=== PATIENT | female | born 1935 | race Caucasian/White ===

== ENCOUNTER 2019-11-21 06:22 | Observation (INO) ==
--- NOTE | 2019-11-19 16:39 | Anesthesiology Consultation ---
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 Denies recent travel. Wears mask, uses good hand hygiene and socially distances. No known Covid positive contacts or Covid related symptoms. Scheduled for preop Covid testing 11/19/19. Seen by cardiology 11/01/2019 = patient seen for cardio follow-up. Patient having increased fatigue and shortness of breath despite medical therapy. It was decided patient needs to be scheduled for Bi-V pacemaker upgrade. Seen by thoracic medicine 10/17/2019 = patient presents for 6-month follow-up with chest CT prior to appointment. Recent CT scan of chest reviewed. Sinus issues x2 months likely allergy related. Patient was covered with antibiotic since increased nodular density in RUL may be infectious. Patient to call in 10 days if cough production does not resolve. Mild persistent asthmapatient's breathing is at baseline. Continue current medications. We will repeats Annemarie Jimenez at the next visit. Pulmonary nodulesstable lung nodules noted. Concern for infectious processwe will treat with antibiotic. Will repeat chest CT in 3 months. Pulmonary hypertensionecho on December 04, 2017 shows EF of 45-49%, left atrium moderately enlarged, pulmonary pressure of 35 mmHg most likely due to group 2. History Surgery Operation Date: 11/21/19 08:00 Proposed Procedures p Biventricular Pacemaker Upgrade w/Casi Driver, Height/Weight Height: 5 ft 4 in Weight: 53.524 kg Allergies Allergy/AdvReac Type Severity Reaction Status Date / Time Sulfa (Sulfonamide Allergy Unknown HIVES, Verified 11/19/19 13:44 Antibiotics) SWELLING lorazepam AdvReac Mild CONFUSION/D Verified 11/19/19 13:44 ELERIUM amoxicillin [From Augmentin] AdvReac Unknown Unknown Verified 11/19/19 13:44 clavulanic acid AdvReac Unknown Unknown Verified 11/19/19 13:44 [From Augmentin] clindamycin AdvReac Unknown NAUSEA, Verified 11/19/19 13:44 DIZZY eluxadoline [From Viberzi] AdvReac Unknown LIGHTHEADED, Verified 11/19/19 13:44 DIZZINESS nitrofurantoin AdvReac Unknown Unknown Verified 11/19/19 13:44 [From Macrobid] Medications Home Medications Medication Instructions Recorded Confirmed Last Taken apixaban 2.5 mg tablet 2.5 mg PO BID #180 tab 10/10/18 11/19/19 Unknown lisinopril 2.5 mg tablet 2.5 mg PO QAM 05/22/19 11/19/19 Unknown torsemide 10 mg tablet 10 mg PO QAM 05/22/19 11/19/19 Unknown beclomethasone dipropionate 40 2 puffs INHALATION BID #10.6 gm 07/06/19 11/19/19 Unknown mcg/actuation HFA breath activated aerosol shower chair #1 ea 07/11/19 09/10/19 Unknown metoprolol tartrate 50 mg tablet 50 mg PO BID #180 tab 09/05/19 11/19/19 Unknown rifaximin 550 mg tablet 550 mg PO BID tab 09/07/19 11/19/19 Unknown albuterol sulfate 90 mcg/actuation 2 puffs INH Q6H PRN #8 gm 09/10/19 11/19/19 Unknown aerosol inhaler simvastatin 10 mg tablet 10 mg PO QPM #90 tab 11/06/19 11/19/19 Unknown Lacto.acidophilus-Bif.animalis 2 cap PO QAM 11/19/19 11/19/19 Unknown aspirin [Aspir-81] 81 mg PO QAM 11/19/19 11/19/19 Unknown cholecalciferol (vitamin D3) 2,000 units PO QAM 11/19/19 11/19/19 Unknown colestipol 1 g PO BID 11/19/19 11/19/19 Unknown levothyroxine 50 mcg PO QAM 11/19/19 11/19/19 Unknown montelukast 10 mg PO QAM 11/19/19 11/19/19 Unknown sertraline 25 mg PO QAM 11/19/19 11/19/19 Unknown Past Medical History Medical History (Updated 11/19/19 @ 17:00 by Rica Murillo PA-C) Asthma Atrial fibrillation Paroxysmal - on Eliquis Cardiomyopathy EF 38% on recent 05/2019 ECHO Carotid stenosis <50% stenosis to bilateral ICAs per 2016 carotid doppler CKD (chronic kidney disease), stage III Follows with nephro- baseline creat 1.3-1.5 Depression Generalized anxiety disorder Hearing deficit NO AIDES History of TIA (transient ischemic attack) Occurred years ago per patient- no recent issues HTN (hypertension) Hyperlipidemia Hypothyroidism IBS (irritable bowel syndrome) 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- dual chamber PPM placed 01/11/14 Pulmonary nodules Past Family History Family History Brother History of open heart surgery Heart disease Blood dyscrasia Sister History of open heart surgery Heart disease Colorectal cancer Family history of diabetes mellitus Mother CHF (congestive heart failure) Heart disease Father Throat cancer Jaw cancer Cancer Hypertension Denies family history of Breast cancer Past Surgical History Surgical History H/O ovarian cystectomy History of bladder surgery History of cholecystectomy History of colonoscopy History of hysterectomy History of knee replacement LEFT Pacemaker Status post spinal arthrodesis Social History Smoking Status: Never smoker Do You Dip or Chew Tobacco: No Hx Alcohol Use: No Hx Substance Use: No Testing Laboratory Results 11/01/19= WBC: 6.24 H/H: 13.5/42.4 PLATELETS: 218 SODIUM: 141 POTASSIUM: 4.3 CHLORIDE: 95 CO2: 29 BUN: 34 CREATININE: 1.6 GLUCOSE: 98 GFR: 30.2 Electrocardiogram Date: 05/16/19 Ventricularpaced rhythm with occasional atrial paced complexes and with occasional PVCs at 63 bpm. Chest X-Ray Date: 05/16/19 Findings: + cardiomegaly (Mild) Lungs are clear of acute infiltrates. No effusions. There is an ovoid lucency with thin borders, overlying the right lower lung field which may be related to the costochondral junction. Small wellcircumscribed nodule seen probably in the anterior segment of right upper lobe. Echocardiogram Date: 05/09/19 EF: 38% Diffuse hypokinesis. The septal motion is abnormal consistent with right ventricular pacemaker. Left atrium is severely enlarged. Mild AR. Mild to moderate MR. Right atrium is moderately enlarged. Moderate to severe TR. Right ventricular systolic function is reduced as assessed by tricuspid annular plane systolic excursion. Dilated IVC with reduced collapsibility with sniff indicates an elevated right atrial pressure of 15 mmHg. PASP =64 mmHg. Proximal ascending thoracic aorta is mildly enlarged at 4.1 cm. Moderate left pleural effusion is present. Stress Test Date: 05/11/19 Type: nuclear Lexiscan nuclear cardiac stress test negative for ischemia. TID normal at 0.89. Intraventricular septum is hypokinetic. The rest of the left ventricle contracts normally. LVEF =54%. Other Testing Chest CT 10/11/2019 = stable lung nodules. Resolution of previously seen pleural effusions with questionable trace residual pleural fluid. Stable minimal ectasia of the ascending aorta (measuring 3.7 cm). Cardiomegaly. Pacer check 10/01/2019 = Medtronic pacemaker. Implanted January 11, 2014. Mode DDIR. Remaining longevity of battery life =2.5 years. Atrial paced =20%. RV paced =74%. 727 with an atrial fibrillation burden of 71%. The longest episode is greater than 99 hours with a ventricular response up to 115 bpm. Impression: Normal dual chamber pacemaker function. Stable pacing and sensing thresholds. Adequate battery reserve. Carotid Doppler 08/07/2015 = <50% stenosis to right and left internal carotid artery. Right and left vertebral arteries demonstrate antegrade flow.
[2019-11-21] MEDS ORDERED: BUPIVACAINE 0.25% 30 ML VIAL ONE (06:53)
[2019-11-21] MEDS ORDERED: LIDOCAINE HCL 1% 20 ML VIAL ONE (06:53)
[2019-11-21] MEDS ORDERED: BACITRACIN INJ 50,000 UNIT VIAL ONE (06:53)
[2019-11-21] MEDS ORDERED: MIDAZOLAM HCL 1 MG/ML 2ML VIAL ONE (07:40)
[2019-11-21] MEDS ORDERED: fentaNYL citrate 100 MCG/2 ML VIAL ONE ×2 (07:40→10:26)
[2019-11-21] MEDS ORDERED: PHENYLEPHRINE 100MCG/ML 5ML SYR ONE (07:41)
[2019-11-21] MEDS ORDERED: PROPOFOL IV EMULSION 10 MG/ML 100 ML VIAL IV ONE (07:41)
[2019-11-21] MEDS ORDERED: ePHEDrine sulfate 50 MG/ML SYR ONE (07:41)
[2019-11-21] MEDS ORDERED: LIDOCAINE HCL 2% 2 ML VIAL/AMP(20MG/ML) INFIL ONE (07:41)
[2019-11-21] MEDS ORDERED: ePHEDrine sulfate 50 MG/ML AMP IV PRN (08:05)
[2019-11-21] MEDS ORDERED: ATROPINE SULFATE 0.1 MG/ML 10ML SYR IV PRN (08:05)
--- NOTE | 2019-11-21 08:08 | History & Physical Bridge Note ---
Date of Service November 21, 2019 History & Physical Bridge Note I have examined the patient, reviewed the History & Physical and in the interval since the performance of the History & Physical I have noted the following changes of clinical significance: no changes noted
[2019-11-21] MEDS ORDERED: CEFAZOLIN 250 MG/ML 1 GM VIAL ONE (08:28)
--- NOTE | 2019-11-21 11:26 | Pre Anesthesia Assessment ---
Date of Service November 21, 2019 Pre Sedation Assessment Vital Signs Temp Pulse Resp BP Pulse Ox 11/21/19 06:57 36.4 C L 75 20 151/77 H 98 Cardiovascular + bradycardic Respiratory normal respiratory effort, lungs clear to auscultation Pre-Sedation Airway Assessment Smoking Status: Never smoker Thyromental Distance: > or= 3.5 Finger Breadths Mallampati Class: II Notes The planned sedation has been discussed with the patient. Informed Consent was obtained. I have identified the patient, determined the appropriateness of sedation and have assessed the patient immediately prior to the procedure. All medicine(s) and interventions are by my order. THIS NOTE WAS MADE IN ERROR-ANESTHESIOLOGY IS THE ONE TO ASSESS PRE-SEDATION ASSESSMENT
[2019-11-21] MEDS ORDERED: NURSING DECISION MEDICATION ONE (11:28)
--- NOTE | 2019-11-21 11:28 | Operative Report ---
Post Operative Report Pre & Post Diagnosis TBS, High RV pacing burden; NICM Operation Date: 11/21/19 08:00 <No data on this case meets the specified criteria> I identified the patient and participated in the time-out.: Yes Procedure Operation Date: 11/21/19 08:00 Actual Procedures p Upgrade of any system to BIV - Yesica Driver DO Surgeon Yesica Driver, Piano Tuner none Estimated Blood Loss 20 Findings Consistent with Post-Op Diagnosis Specimens none Description of Procedure see official report I attest to the content of the Intraoperative Record and any orders documented therein. Any exceptions are noted below.
--- NOTE | 2019-11-21 11:38 | Discharge Summary ---
Date of Service November 22, 2019 Admission HPI Per Admitting Provider Pt admitted for elective upgrade to BiV ppm due to NICM. Pt underwent procedure without any complications; monitored overnight and discharged home. Admission Exam Per Admitting Provider aaox3, NAD NC/AT, EOMI Supple No JVD irregular irregular, bradycardic S1/S2, + murmur CTA b/l no w/r/r soft nt/nd no LE edema b/l skin intact no focal deficits Principal Diagnosis NICM s/p upgrade to BiV ppm Discharge Exam aaox3, NAD NC/AT, EOMI Supple No JVD Nrl S1/S2, + murmur CTA b/l no w/r/r soft nt/nd no LE edema b/l skin intact no focal deficits left pectoral incision intact, no hematoma mild ecchymosis Discharge Data Allergies Allergy/AdvReac Type Severity Reaction Status Date / Time Sulfa (Sulfonamide Allergy Unknown HIVES, Verified 11/19/19 13:44 Antibiotics) SWELLING lorazepam AdvReac Mild CONFUSION/D Verified 11/19/19 13:44 ELERIUM amoxicillin [From Augmentin] AdvReac Unknown Unknown Verified 11/19/19 13:44 clavulanic acid AdvReac Unknown Unknown Verified 11/19/19 13:44 [From Augmentin] clindamycin AdvReac Unknown NAUSEA, Verified 11/19/19 13:44 DIZZY eluxadoline [From Viberzi] AdvReac Unknown LIGHTHEADED, Verified 11/19/19 13:44 DIZZINESS nitrofurantoin AdvReac Unknown Unknown Verified 11/19/19 13:44 [From Macrobid] Procedures Performed Operation Date: 11/21/19 08:00 Actual Procedures p Upgrade of any system to BIV - Yesica Driver, Ordered Studies ECG: BiV paced with underlying AF CXR: Leads in position; no PTX BiV PPM Interrogation:Normal function and stable lead testing since implant 11/21/19 07:15 EP Lab Images for PACS ONCE Hospital Course (1) NICM (nonischemic cardiomyopathy): Total Time Total Time Spent Total Time Spent (In Minutes): 35 Total Time Includes: Examination of the Patient, Discharge Planning, Medication Reconciliation and Other Discharge Plan Discharge Items Patient Disposition: Home - Self-Care Reason For Visit: Sick Sinus Syndrome, PAF, Cardiomyopathy Discharge Diagnosis: NICM s/p upgrade to BiV ppm Condition on Discharge: Good Activity: As commented below Activity Comment: do not lift the left elbow over the left arm for 1 month Lifting: No more than 10 pounds Lifting Comment: do not lift more than 10 pounds with the left arm for 2 weeks Bathing: Keep incision dry Bathing Comment: keep dressing on and dry until wound check next week Call non-emergency contact if: you have any medication questions Follow-up/Referrals: Florentin Pradhan DO [Primary Care Provider] - Diet: Heart Healthy Addtl Attending Provider Instructions: device and wound check as scheduled in [facility] next week try to wear a sports bra or the surgical bra for 2 weeks to help with healing process Pending Studies at Discharge: No Stand-Alone Forms: My [facility] Medications and DC Order Prescriptions: Continued torsemide 10 mg tablet 10 mg PO QAM RF: 0 lisinopril 2.5 mg tablet 2.5 mg PO QAM RF: 0 beclomethasone dipropionate 40 mcg/actuation HFA aerosol breath activated 2 puffs inhalation BID Qty: 10.6 RF: 3 (DME) shower chair Qty: 1 RF: 0 metoprolol tartrate 50 mg tablet 50 mg PO BID Qty: 180 RF: 3 simvastatin 10 mg tablet 10 mg PO QPM Qty: 90 RF: 3 albuterol sulfate [Proventil HFA] 90 mcg/actuation HFA aerosol inhaler 2 puffs INH Q6H PRN (Reason: shortness of breath or wheezing) Qty: 8 RF: 5 apixaban 2.5 mg tablet 2.5 mg PO BID Qty: 180 RF: 3 Xifaxan 550 mg tablet 550 mg PO BID RF: 0 cholecalciferol (vitamin D3) 2,000 unit capsule 2,000 units PO QAM RF: 0 levothyroxine 50 mcg tablet 50 mcg PO QAM RF: 0 sertraline 25 mg tablet 25 mg PO QAM RF: 0 montelukast 10 mg tablet 10 mg PO QAM RF: 0 Lacto.acidophilus-Bif.animalis 31 billion cell capsule 2 cap PO QAM RF: 0 colestipol 1 gram Tablet 1 g PO BID RF: 0 aspirin [Aspir-81] 81 mg Tablet,Delayed Release (Dr/Ec) 81 mg PO QAM RF: 0 Discharge Orders: Discharge Order (Routine); Ordered 11/22/19 Ordered By: Yesica Driver Admission Data Admit Date/Time: 11/21/19 09:07 Attending Provider: Yesica Driver Admit Provider: Yesica Driver Primary Care Provider: Florentin Pradhan Other Interventions: Discharge Summary Assessment (RN) Last Done: 11/22/19 08:29
--- NOTE | 2019-11-21 11:45 | Anesthesiology Progress Note ---
Date of Service November 21, 2019 Anesthesia Post Procedure Vital Signs Vital Signs: Temp Pulse Resp BP Pulse Ox 11/21/19 11:35 65 20 148/66 H 96 11/21/19 06:57 36.4 C L 75 20 151/77 H 98 Transfer of Care Handoff Completed per policy Notes Mental Status: alert / awake / arousable and participated in evaluation Patient Amnestic to Procedure: Yes Nausea / Vomiting: adequately controlled Pain: adequately controlled Airway Patency, RR, SpO2: stable & adequate BP & HR: stable & adequate Hydration State: stable & adequate Anesthetic Complications: no major complications apparent and Pt Satisfied with anesthetic care
--- NOTE | 2019-11-21 13:32 | Electrocardiogram Report ---
Test Reason : Blood Pressure : / mmHG Vent. Rate : 061 BPM Atrial Rate : 060 BPM P-R Int : 000 ms QRS Dur : 120 ms QT Int : 506 ms P-R-T Axes : 000 -79 089 degrees QTc Int : 509 ms Ventricular-paced rhythm Abnormal ECG When compared with ECG of 05-JAN-2009 06:39, Electronic ventricular pacemaker has replaced Sinus rhythm Confirmed by Kevin Trujillo ([id number]) on 11/21/2019 1:32:31 PM Referred By: Yesica Driver Confirmed By:Kevin Trujillo
[2019-11-21] MEDS: LACTOBACILLUS ACIDOPHILUS (FLORANEX) TAB PO SCH ×2 (13:36→17:19)
[2019-11-21] MEDS: METOPROLOL TARTRATE 50 MG TAB PO SCH (20:16)
[2019-11-21] MEDS: RIFAXIMIN 550 MG TABLET PO SCH (20:16)
[2019-11-21] MEDS: ACETAMINOPHEN 325 MG TAB PO PRN (20:18)
[2019-11-21] MEDS ORDERED: SIMVASTATIN 10 MG TAB PO SCH (21:00)
[2019-11-21] MEDS: COLESTIPOL HCL 1 GM TAB PO SCH (21:14)
[2019-11-22] MEDS ORDERED: LEVOTHYROXINE SODIUM 50 MCG TABLET PO SCH (06:30)
--- NOTE | 2019-11-22 07:37 | XRay Report ---
XR chest 2V PA/lateral CLINICAL HISTORY: Pacemaker placement COMPARISON STUDY: No previous studies for comparison. FINDINGS: There is a right subclavian central venous pacemaker. The heart is mildly enlarged. There a re small bilateral pleural effusions. There is no pneumothorax. There is no focal pulmonary consolida tion[ IMPRESSION: 1. Small bilateral pleural effusions 2. No evidence of pneumothorax status post pacemaker placement ACT 112: Negative or not required by law. Electronically signed by: Brandon Sanchez M.D. 11/22/2019 7:36 AM
[2019-11-22] MEDS: ACETAMINOPHEN 325 MG TAB PO PRN (08:05)
[2019-11-22] MEDS: LACTOBACILLUS ACIDOPHILUS (FLORANEX) TAB PO SCH (08:06)
[2019-11-22] MEDS: RIFAXIMIN 550 MG TABLET PO SCH (08:06)
[2019-11-22] MEDS: METOPROLOL TARTRATE 50 MG TAB PO SCH (08:06)
[2019-11-22] MEDS ORDERED: ASPIRIN 81 MG ECTAB PO SCH (09:00)
[2019-11-22] MEDS ORDERED: CHOLECALCIFEROL 1,000 UNITS 25 MCG TAB PO SCH (09:00)
[2019-11-22] MEDS ORDERED: APIXABAN 2.5 MG TAB PO SCH (09:00)
[2019-11-22] MEDS ORDERED: TORSEMIDE 10 MG TAB PO SCH (09:00)
[2019-11-22] MEDS ORDERED: SERTRALINE HCL 50 MG TABLET PO SCH (09:00)
[2019-11-22] MEDS ORDERED: FLUTICASONE FUROATE 100MCG 14 PUFFS/INHALER INH SCH (09:00)
[2019-11-22] MEDS ORDERED: MONTELUKAST SODIUM 10 MG TABLET PO SCH (09:00)
[2019-11-22] MEDS: COLESTIPOL HCL 1 GM TAB PO SCH (09:54)
--- NOTE | 2019-11-23 21:29 | Operative Report (OR) ---
DATE OF OPERATION: 11/21/2019 PREOPERATIVE DIAGNOSES: Nonischemic cardiomyopathy, high right ventricular pacing burden, persistent probably permanent atrial fibrillation. POSTOPERATIVE DIAGNOSES: Nonischemic cardiomyopathy, high right ventricular pacing burden, persistent probably permanent atrial fibrillation. PROCEDURE: Upgrade to a biventricular rate responsive implantable permanent pacemaker with peripheral and coronary sinus venograms under fluoroscopic guidance. SURGEON: Yesica Driver DO. ASSISTANTS: None. ANESTHESIA: Monitored anesthetic care was given via Anesthesiology. Please defer to their notes for complete details, but she got a total of 200 mcg of fentanyl, 2 mg of Versed, 480 mg of propofol. Start time for sedation was 0811, procedure start time was 0849 and total end of the procedure was 1121. INTRAVENOUS FLUIDS: 275 mL. BLOOD LOSS: 20 mL. CONTRAST: 40 mL. URINE OUTPUT: None. SPECIMENS: None. FINDINGS: See below. DRAINS: None. INDICATIONS: This is an 84-year-old female with a past medical history for sick sinus syndrome and tachybrady syndrome where she underwent a permanent pacemaker on 01/11/2014, paroxysmal atrial fibrillation, probably more persistent and becoming permanent, on Eliquis and beta ko, CHADS2-VASc score of 6, hypertension, history of TIA, hyperlipidemia, nonischemic cardiomyopathy, ejection fraction of 38%, hypothyroidism and becoming more complete heart block with a high RV pacing burden with a reduction and cardiomyopathy. She was recommended an upgrade to a BiV device. CONSENT: Consent was obtained prior to the patient going into electrophysiology lab. The patient was informed of the risks, benefits and alternative to the procedure. Risks include but not limited to sudden cardiac , cardiac arrhythmias, cerebrovascular accident, myocardial infarction, injury to the blood vessels, chamber of the heart, lung, bleeding, and infection. The patient understood these risks and agreed to the procedure as planned. Informed consent was obtained. DESCRIPTION OF THE PROCEDURE: The patient was brought into the electrophysiology lab in a fasting state. She was connected to continuous quality assurance monitor body. Timeout was performed to ensure patient's identity and procedure correctly. The patient was prepped and draped over the right infraclavicular space in normal surgical standard fashion. Monitored anesthetic care was given throughout the procedure for patient's comfort level. [place] precautions were obtained throughout the procedure. 10 mL of 1% lidocaine-bupivacaine mixture were given over the prior surgical incision. Incision was made over the prior surgical incision. Blunt dissection was performed down to take out the pulse generator, the pulse generator remained attached to the leads during the procedure. Then, a peripheral venogram was performed and venous axillary access was obtained through an axillary stick without any problems. A guidewire was inserted without any resistance. A 9.5-Swiss SafeSheath was then advanced over the guidewire without any resistance. Dilator and guidewire were removed. I initially was able to cannulate the coronary sinus once using the right-sided Pronotatronic outer coronary sinus sheath and the StyleZen Decapolar diagnostic catheter, but after that I was unable to use the diagnostic catheter to cannulate it, but I did start on fluoro, so I knew my outline and was able to cannulate it with a Glidewire. I did have trouble with the outer sheath getting out into the coronary sinus. I was able at one point to get the right-sided MPX out and did a venogram of the coronary sinus, which showed 1 posterior lateral branch, which did have a little bit of acute spiral takeoff. I was able to wire this at one time, but I had to use the 5-Swiss and inner 90, but then when I was trying to run the hockey stick lead over it, it all came back. I then tried a different outer sheath, which did not help me any better, it was the Attain Command, so I ultimately ended up being successful getting into this branch with an MPX, inner 90, 5-Swiss which then came out over the Whisper wire and then using the straight pacemaker lead. There was adequate pacing and sensing thresholds. I did have some diaphragmatic when I was pacing from the tip intraoperatively, but not postoperatively, then the sheaths were all slit under fluoroscopic guidance and then the 9.5-Swiss sheath was peeled and then the lead was fixated to pectoralis muscle using 0 silk suture. The pocket was disrupted inferiorly caudally to allow for new blood flow. The right atrial and right ventricular leads were tested intraoperatively. All the leads were attached to the new pulse generator, making sure the pins were in appropriate position, passed set screws and set screws were all tightened. The pulse generator was then placed in the antibiotic pouch followed by then be being placed in the pocket, making sure that the leads were lying flat beneath the device. The incision was closed in a 3-layer fashion with 2-0 Vicryl interrupted suture followed by 3-0 Vicryl interrupted suture, followed by 4-0 Monocryl running stitch and Dermabond was applied followed by Telfa and micropore dressing. EQUIPMENT: 1. Explanted generator is an Teto MURPHY, serial number [id number], implanted 01/11/2014. 2. The new pulse generator is a Medtronic Christelle QUAD CRTP MRI SureScan [id number], serial number [id number]. 3. TYRX pouch reference [id number], lot number [id number], expiration 08/17/2020. 4. Right atrial lead: Medtronic 5076-45 cm, serial number [id number], implanted 01/11/2014. 5. Right ventricular lead: 5076-52 cm, serial number [id number], implanted 01/11/2014. 6. Left ventricular lead, Medtronic 4398-78 cm, serial number [id number]. INTRAOPERATIVE TESTIN. Right atrial lead: Fib waves are 0.8 millivolts, impedance 472 ohms, no threshold testing, the patient is in AFib. 2. Right ventricular lead: R waves 4.7 millivolts, impedance 556 ohms, threshold 0.6 volts at 0.4 milliseconds. 3. Left ventricular lead programmed LV2 to LV3, impedance 352 ohms, threshold 0.3 volts at 0.4 milliseconds. FINAL MEASUREMENTS THROUGH THE DEVICE: 1. Right atrial lead: Fib waves 1.4 millivolts, impedance 551 ohms, threshold -- no threshold testing, the patient is in AFib. 2. Right ventricular lead: R waves 5.6 millivolts, impedance 494 ohms, threshold 0.75 volts at 0.4 milliseconds. 3. The device was programmed LV1-LV4, there was no diaphragmatic output or any stimulation on high output pacing, impedance 513 ohms, threshold 0.5 volts at 0.4 milliseconds. FINAL PARAMETERS: DDDR 60/130, right atrial amplitude 1.5 volts, pulse width 0.4 milliseconds, sensitivity 0.15 millivolts. Right ventricular amplitude 1.5 volts, pulse width 0.4 milliseconds, sensitivity 1.2 millivolts. Left ventricular amplitude 3.5 volts, pulse width 0.4 milliseconds. IMPRESSION: Successful upgrade to a biventricular rate responsive permanent pacemaker under fluoroscopic guidance along with peripheral and coronary sinus venograms secondary to nonischemic cardiomyopathy and high right ventricular pacing burden. PLAN: Monitor patient overnight, 12-lead ECG, chest x-ray. She cannot lift the right elbow or the right shoulder for 1 month. She cannot lift more than 10 pounds with the right arm for 2 weeks. She is to keep the dressing on and dry until her wound check next week. I attest to the content of the Intraoperative Record and any orders documented therein. Any exceptions are noted below. JAIRD
== END 2019-11-22 10:50 | disposition home or self-care (01) ==
LOC: EP 06:22 → 2S 06:22